=== PATIENT | female | born 1985 | race Two or more races ===

== ENCOUNTER 2017-08-02 18:51 | Emergency (ER) | payer OTHER ==
[~2017-08-02] VITALS: Ht 170.2 cm; Wt 113.4 kg
[2017-08-02] MEDS ORDERED: predniSONE 50 MG TABLET PO ONE (19:30)
[2017-08-02] MEDS ORDERED: CEPHALEXIN MONOHYDRATE 500 MG CAPSULE PO ONE (19:30)
--- NOTE | 2017-08-02 19:32 | NUR ---
Patient discharged to home in stable conditon. Written and verbal after care instructions given. Patient verbalizes understanding of instructions.
[2017-08-02] MEDS ORDERED: CEPHALEXIN MONOHYDRATE 500 MG CAPSULE ONE (19:44)
[2017-08-02] MEDS ORDERED: predniSONE 50 MG TABLET ONE (19:44)
== END 2017-08-02 19:34 | disposition home or self-care (01) ==
LOC: ER 18:51
DX: J03.90 Acute tonsillitis, unspecified (principal); I88.9 Nonspecific lymphadenitis, unspecified; H91.91 Unspecified hearing loss, right ear
CPT/HCPCS: A4663; J7512

== ENCOUNTER 2017-08-23 19:45 | Emergency (ER) | payer MEDICAID ==
[~2017-08-23] VITALS: Ht 170.2 cm; Wt 113.4 kg
[2017-08-23] MEDS ORDERED: CEPH-570 (20:13)
--- NOTE | 2017-08-23 21:39 | NUR ---
Patient discharged to home in stable conditon. Written and verbal after care instructions given. Patient verbalizes understanding of instructions.
== END 2017-08-23 21:40 | disposition home or self-care (01) ==
LOC: ER 19:47
DX: J20.8 Acute bronchitis due to other specified organisms (principal); B96.89 Other specified bacterial agents as the cause of diseases classified elsewhere; H91.91 Unspecified hearing loss, right ear
CPT/HCPCS: A4663

== ENCOUNTER 2017-08-24 01:30 | Emergency (ER) | payer MEDICAID ==
[~2017-08-24] VITALS: Ht 170.2 cm; Wt 97.5 kg
[~2017-08-24 01:30] MED LIST: CEPH-570
[2017-08-24] MEDS ORDERED: PANTOPRAZOLE SODIUM 40 MG VIAL IV ONE (01:45)
[2017-08-24] MEDS ORDERED: MORPHINE SULFATE 2 MG/1 ML DISP.SYRIN IV ONE (01:45)
[2017-08-24] MEDS ORDERED: IV NORMAL SALINE 1000 ML BAG IV ONE (01:45)
[2017-08-24] MEDS ORDERED: ONDANSETRON 4 MG/2 ML VIAL IV ONE (01:45)
[2017-08-24] MEDS ORDERED: PANTOPRAZOLE SODIUM 40 MG VIAL ONE (02:07)
[2017-08-24] MEDS ORDERED: MORPHINE SULFATE 4 MG/1 ML DISP.SYRIN ONE (02:08)
[2017-08-24] MEDS ORDERED: ONDANSETRON 4 MG/2 ML VIAL ONE (02:08)
[2017-08-24 02:10] LABS: BASOPHILS % (AUTO) 0.6 % (0.0-2.0); EOSINOPHILS # (AUTO) 0.2 K/uL (0.0-0.7); EOSINOPHILS % (AUTO) 3.3 % (0.0-7.0); HEMATOCRIT 35.4 % (31.2-41.9); HEMOGLOBIN 11.7 g/dL (10.9-14.3); LYMPHOCYTES # (AUTO) 2.4 K/uL (20.0-40.0); LYMPHOCYTES % (AUTO) 52.7 % (20.5-51.5); MEAN CORPUSCULAR HEMOGLOBIN 25.6 uug (24.7-32.8); MEAN CORPUSCULAR HGB CONC 33 g/dL (32.3-35.6); MEAN CORPUSCULAR VOLUME 77.1 fL (75.5-95.3); MONOCYTES # (AUTO) 0.4 K/uL (2.0-10.0); MONOCYTES % (AUTO) 9.3 % (0.0-11.0); NEUTROPHILS # (AUTO) 1.6 K/uL (1.8-8.9); NEUTROPHILS % (AUTO) 34.1 % (38.5-71.5); PLATELET COUNT (AUTO) 261 K/uL (179-408); RED BLOOD CELL COUNT(AUTO) 4.59 MIL/uL (3.63-4.92); WHITE BLOOD COUNT (AUTO) 4.6 K/uL (3.8-11.8)
[2017-08-24 02:16] LABS: BILIRUBIN,DIRECT 0.1 mg/dL (0.0-0.2); BILIRUBIN,TOTAL 0.4 mg/dL (0.2-1.0); CREATININE 0.7 mg/dL (0.6-1.3); POTASSIUM 3.2 mmol/L (3.5-5.1); TOTAL PROTEIN, SERUM 8.2 g/dL (6.4-8.2)
[2017-08-24] MEDS ORDERED: KETOROLAC TROMETHAMINE 30 MG INJ ONE (02:57)
[2017-08-24] MEDS ORDERED: KETOROLAC TROMETHAMINE 30 MG INJ IVP ONE (03:00)
--- NOTE | 2017-08-24 03:31 | NUR ---
Pt stable for discharge per MD. IV dc'd, catheter intact. Drsg applied. No problems noted to site. Pt given ACI. Pt verbalized understanding of dc instructions. Pt ambulated out of ER with steady and ride home.
[2017-08-24 03:43] VITALS: BP 128/68
== END 2017-08-24 03:35 | disposition home or self-care (01) ==
LOC: ER 01:30
DX: K80.50 Calculus of bile duct without cholangitis or cholecystitis without obstruction (principal); E66.9 Obesity, unspecified
CPT/HCPCS: 36415; 80048; 80076; 83690; 84703; 85025; 93005; 96361; 96374; 96375; 99285; A4663; C9113; J1885; J2270; J2405; J7030

== ENCOUNTER 2017-11-18 17:24 | Emergency (ER) | payer BC, OTHER ==
[~2017-11-18] VITALS: Ht 170.2 cm; Wt 109.3 kg
--- NOTE | 2017-11-18 18:17 | NUR ---
PT TOLERATING PO FLUIDS X 2 CUPS WELL. SPEAKING EASILY. GIVEN RX AND ADVISED FU PMD IN 2 DAYS AND RETURN IF SYMPTOMS INCREASE CHANGE OR PERSIST.
[2017-11-18 18:20] VITALS: BP 145/56
== END 2017-11-18 18:21 | disposition home or self-care (01) ==
LOC: ER 17:25
DX: K12.1 Other forms of stomatitis (principal); Z79.2 Long term (current) use of antibiotics
CPT/HCPCS: 99283; A4663